=== PATIENT | male | born 1955 | race Caucasian/White ===

== ENCOUNTER → 2018-07-01 | Outpatient (CLI) | payer OTHER ==
[~2018-07-01] MED LIST: CHOL1TAB42 PO; CLB/200 PO
[2018-07-01 17:31] LABS: ALKALINE PHOSPHATASE 59 U/L (45-117); ALT/SGPT 30 U/L (12-78); AST/SGOT 26 U/L (15-37); BLOOD UREA NITROGEN 22 mg/dl (7-18); CALCIUM 8.7 mg/dl (8.5-10.1); CARBON DIOXIDE 28 mmol/L (21-32); CHOLESTEROL 173 mg/dl (0-200); CREATININE 0.99 mg/dl (0.60-1.40); GLUCOSE 90 mg/dl (70-99); LDL CHOLESTEROL CALCULATED 101 mg/dl; POTASSIUM 4.1 mmol/L (3.5-5.1); SODIUM 138 mmol/L (136-145); TOTAL PROTEIN 7.6 gm/dl (6.4-8.2)
== END | disposition home or self-care (01) ==
LOC: C.LABPVFM 12:00
PROVIDERS: ATTEND Family Medicine
DX: Z13.220 Encounter for screening for lipoid disorders (principal); Z13.1 Encounter for screening for diabetes mellitus

== ENCOUNTER 2024-08-10 05:55 | Observation (INO) ==
--- NOTE | 2024-08-01 10:58 | Anesthesiology Consultation ---
Date of Service August 01, 2024 Assessment & Plan Chart Review Chart Review: Acceptable Risk for Surgery and Patient NOT seen in Pre Admission Testing Consults Requested none History Surgery Operation Date: 08/10/24 12:00 Proposed Procedures p Robotic Assisted Laparoscopic Radical Retropubic Prostatectomy, Possible Open, Possible Pelvin Lymph Node Biopsy - Johan Major MD Height/Weight Height: 6 ft 1 in Weight: 92.986 kg Allergies Allergy/AdvReac Type Severity Reaction Status Date / Time penicillin V Allergy Unknown Unknown Verified 07/31/24 10:13 Medications Home Medications Medication Instructions Recorded Confirmed Last Taken cholecalciferol (vitamin D3) 125 125 mcg PO QAM 12/05/21 07/31/24 12/08/21 mcg (5,000 unit) tablet (Vitamin D3) multivitamin 1 tab PO QAM 12/27/23 07/31/24 Unknown celecoxib 200 mg capsule 200 mg PO QAM #90 caps 04/25/24 07/31/24 Unknown sulfamethoxazole 800 1 tab PO BID #20 tabs 07/27/24 07/31/24 Unknown mg-trimethoprim 160 mg tablet (Bactrim DS) hydrochlorothiazide 12.5 mg tablet 12.5 mg PO QAM 07/31/24 07/31/24 Unknown metoprolol succinate 25 mg 12.5 mg PO QAM 07/31/24 07/31/24 Unknown tablet,extended release 24 hr paroxetine HCl 10 mg tablet 10 mg PO QAM arthritis pain 07/31/24 07/31/24 Unknown tadalafil 5 mg tablet 5 mg PO DAILY PRN Erectile 07/31/24 07/31/24 Unknown Dysfunction tamsulosin 0.4 mg capsule 0.8 mg PO QAM 07/31/24 07/31/24 Unknown Past Medical History Medical History (Updated 07/31/24 @ 10:31 by Portia Luis) BPH (benign prostatic hyperplasia) RBBB History of bradycardia f/u [facility] Aneurysm of ascending aorta monitoring; f/u [facility] Ventricular ectopy f/u [facility] Hx of colonic polyps Hypertension Mobitz type 1 second degree atrioventricular block f/u [facility] Prostate cancer dx 05/2024 Rotator cuff tear, left no sx, "it got better" Arthritis paroxetine for this per pt Diverticulosis of colon Internal hemorrhoids Spermatocele pt unsure? Testicular atrophy pt unsure? Past Family History Family History Brother Cancer Prostate cancer Stroke Father Cancer Myocardial infarction Denies family history of Ovarian cancer Diabetes Breast cancer Colorectal cancer Hypertension Past Surgical History Surgical History History of tooth extraction History of tonsillectomy H/O colonoscopy 2014 Social History Smoking Status: Never smoker Do You Dip or Chew Tobacco: No Hx Alcohol Use: Yes Alcohol type: beer alcohol intake frequency: other Alcohol Intake Frequency Comment: 1-2x per week Hx Substance Use: Yes substance use type: marijuana Substance Use Type Other:: marijuana once per week Last Used Substance Other:: daily use Testing Laboratory Results Laboratory Tests 07/25/24 08:55 WBC 4.89 Hgb 12.9 L Hct 38.1 L Plt Count 218 Sodium 139 Potassium 3.9 Chloride 106 Carbon Dioxide 27 BUN 22 Creatinine 0.92 Glucose 114 H Electrocardiogram Date: 12/27/23 Findings: + NSR @ and + RBBB mobitz type I AVB Echocardiogram Date: 01/26/24 EF: 40 LV Function: dysfunctional (global hypokenesis) Valvular Disease: + AI (mild) and + MR (moderate) mildly dilated aortic root
[~2024-08-10 05:55] MED LIST changes: +ALLERGY Noted to ORDERED Medication SCH; -CHOL1TAB42 PO; -CLB/200 PO
[2024-08-10] MEDS ORDERED: MIDAZOLAM HCL 1 MG/ML 2ML VIAL ONE (06:56)
[2024-08-10] MEDS ORDERED: fentaNYL citrate PF 100 MCG/2 ML VIAL ONE ×4 (06:56→12:40)
[2024-08-10] MEDS ORDERED: LIDOCAINE 2% 2 ML VIAL/AMP(20MG/ML) INFIL ONE (07:00)
[2024-08-10] MEDS ORDERED: DEXAMETHASONE SOD INJ 4 MG/ML VIAL ONE (07:00)
[2024-08-10] MEDS ORDERED: PROPOFOL IV EMULSION 10 MG/ML 20 ML VIAL IV ONE (07:00)
[2024-08-10] MEDS ORDERED: ONDANSETRON INJ 2 MG/ML 2 ML VIAL ONE ×2 (07:00→09:51)
[2024-08-10] MEDS ORDERED: ROCURONIUM BROMIDE 10 MG/ML 5 ML VIAL IV ONE ×3 (07:00→10:03)
[2024-08-10] MEDS ORDERED: ACETAMINOPHEN 1000 MG/100 ML IV IV ONE (07:04)
[2024-08-10] MEDS ORDERED: ePHEDrine sulfate 50 MG/ML AMP IV PRN (07:09)
[2024-08-10] MEDS ORDERED: ONDANSETRON INJ 2 MG/ML 2 ML VIAL IV PRN (07:09)
[2024-08-10] MEDS: LR 15ML/HR IV SCH (07:09)
[2024-08-10] MEDS ORDERED: ATROPINE SULFATE 0.1 MG/ML 10ML SYR IV PRN (07:09)
[2024-08-10] MEDS ORDERED: HYDROmorphone INJ 1 MG/ML SYRINGE IV PRN (07:09)
[2024-08-10] MEDS: HEPARIN SOD 5,000 UNIT/0.5 ML VIAL SQ SCH ×2 (07:10→20:15)
[2024-08-10] MEDS: LACTATED RINGER'S 1,000 ML IV SCH (07:10)
--- NOTE | 2024-08-10 07:12 | History & Physical Report ---
Date of Service August 10, 2024 Assessment & Plan (1) Prostate cancer: Plan: We reviewed the plan for robot-assisted radical prostatectomy and possible bilateral pelvic lymph node dissection. We reviewed risks and benefits of surgery. He expressed understanding would like to proceed History of Present Illness Primary Care Provider: Timmy Mike DO This is a 68-year-old male followed by urology for prostate cancer. He presents to the OR today for robot-assisted radical prostatectomy. He has been on culture specific antibiotics leading up to surgery. He denies any UTI symptoms. He has been performing CIC 2-3 times daily. Allergies Allergy/AdvReac Type Severity Reaction Status Date / Time penicillin V Allergy Unknown Unknown Verified 08/10/24 06:25 Home Medications Medication Instructions Recorded Confirmed Type cholecalciferol (vitamin D3) 125 125 mcg PO QAM 12/05/21 08/10/24 History mcg (5,000 unit) tablet (Vitamin D3) multivitamin 1 tab PO QAM 12/27/23 08/10/24 History celecoxib 200 mg capsule 200 mg PO QAM #90 caps 04/25/24 08/10/24 Rx hydrochlorothiazide 12.5 mg tablet 12.5 mg PO QAM 07/31/24 08/10/24 History metoprolol succinate 25 mg 12.5 mg PO QAM 07/31/24 08/10/24 History tablet,extended release 24 hr paroxetine HCl 10 mg tablet 10 mg PO QAM arthritis pain 07/31/24 08/10/24 History tadalafil 5 mg tablet 5 mg PO DAILY PRN Erectile 07/31/24 08/10/24 History Dysfunction tamsulosin 0.4 mg capsule 0.8 mg PO QAM 07/31/24 08/10/24 History sulfamethoxazole 800 1 tab PO BID #14 tabs 08/04/24 08/10/24 Rx mg-trimethoprim 160 mg tablet (Bactrim DS) ciprofloxacin HCl 500 mg tablet 500 mg PO BID UTI #8 tabs 08/07/24 08/10/24 Rx Past Med/Surg History Problem List Prostate cancer Incomplete emptying of bladder Elevated PSA BPH (benign prostatic hyperplasia) Mobitz type 1 second degree AV block Fatigue Uses marijuana Hyperglycemia History of colon polyps Hypertension Bradycardia Acute dentin caries Trismus TMJ capsulitis Aneurysm of ascending aorta (Acute) Arthritis (Acute) Spinal stenosis (Acute) Vitamin D deficiency Ventricular ectopy Near syncope RBBB follows with Dr. Manzanares Medical History BPH (benign prostatic hyperplasia) RBBB History of bradycardia f/u [facility] Aneurysm of ascending aorta monitoring; f/[facility] Ventricular ectopy f/u [facility] Hx of colonic polyps Hypertension Mobitz type 1 second degree atrioventricular block f/u [facility] Prostate cancer dx 05/2024 Rotator cuff tear, left no sx, "it got better" Arthritis paroxetine for this per pt Diverticulosis of colon Internal hemorrhoids Spermatocele pt unsure? Testicular atrophy pt unsure? Surgical History History of tooth extraction History of tonsillectomy H/O colonoscopy 2014 Family History Brother Cancer Prostate cancer Stroke Father Cancer Myocardial infarction Denies family history of Ovarian cancer Diabetes Breast cancer Colorectal cancer Hypertension Social History Smoking Status: Never smoker Second Hand Exposure: Yes (hx as child); Do You Dip or Chew Tobacco: No; Tobacco Cessation Education Requested by Patient: No Hx Alcohol Use: Yes Alcohol type: beer Hx Substance Use: Yes Non-Prescribed Medications: Marijuana Last Used Substance Other:: daily use Substance Use Type Other:: marijuana once per week Preferred Language: Congolese Communication Ability: Effective Dent Remover Required: No Beliefs That Will Affect Care: None marital status: Current Living Situation: Spouse current occupational status: employed current occupation: self employed How many Children do You have: 1 Other Information That Helps Us Care for You: No Feels Safe at Home: Yes Safety Concerns: Feels Safe At This Time Childhood Exposure to Second-Hand Smoke: Yes Diet: regular caffeine: Yes Dental Care, Regularly: Yes Physical Activity Frequency: Daily Seatbelt Use: always Sunscreen Use: No Assistive Devices: Glasses Assistive Devices Comment: reading glasses prn Review of Systems 12 point review of systems negative except for otherwise indicated. Physical Exam Constitutional: well developed and well nourished; no acute distress Eyes: + anicteric sclerae; pupils not irregula r Respiratory: normal respiratory effort; no respiratory distress, does not use accessory muscles and no cough Cardiovascular: well perfused Gastrointestinal (Abdomen): Inspection/Auscultation: abdomen normal to inspection; abdomen not distended Musculoskeletal: Extremities: extremities normal to inspection Skin: normal turgor; no rashes and no lesions Neurologic: moves all extremities and awake Psychiatric: Orientation: alert and oriented x 3 Results & Data Vital Signs (Past 12 Hours) Vital Signs Temp Pulse Resp BP Pulse Ox O2 Del Method 08/10/24 06:30 37 C 56 L 20 126/74 97 Room Air
[2024-08-10] MEDS ORDERED: Nursing to Pharmacy Communication SCH (07:15)
[2024-08-10] MEDS: ceFAZolin 2000MG 2,000 MG/15 ML SYR IV SCH ×2 (07:26→15:27)
[2024-08-10] MEDS ORDERED: GLYCOPYRROLATE 0.2 MG/ML VIAL ONE (08:06)
[2024-08-10] MEDS ORDERED: METOPROLOL TARTRATE 1 MG/ML VIAL IV ONE (09:13)
[2024-08-10] MEDS ORDERED: KETOROLAC 30 MG/ML VIAL ONE (09:17)
[2024-08-10] MEDS ORDERED: SUGAMMADEX SODIUM 200 MG/2 ML VIAL IV ONE (09:18)
[2024-08-10] MEDS ORDERED: HYDROmorphone INJ 2 MG/ML SYR/VIAL ONE (09:49)
[2024-08-10] MEDS: SURGICEL ABSORB HEMOSTAT 2IN X 14IN TOP ONE (10:45)
[2024-08-10] MEDS: BUPIVACAINE 0.5 % 5 MG/1 ML MPF 30ML VIAL ONE (11:06)
--- NOTE | 2024-08-10 11:31 | Operative Report ---
PG Post Operative Report Pre & Post Diagnosis Operation Date: 08/10/24 07:30 Pre-Op Diagnosis: Prostate cancer Post-Op Diagnosis: Prostate cancer I identified the patient and participated in the time-out.: Yes Procedure Operation Date: 08/10/24 07:30 Actual Procedures p Robotic Assisted Laparoscopic Radical Retropubic Prostatectomy, Pelvic Lymph Node Dissection(Not Applicable) - Johan Major MD Surgeon Johan Major MD Foil Cutter ROZINA Little Estimated Blood Loss 50 Findings Consistent with Post-Op Diagnosis Specimens 1) periprostatic fat 2) right pelvic lymph nodes 3) left pelvic lymph nodes 4) prostate, vas deferens, seminal vesicles Drains Villalpando catheter per urethra Anesthesia Type General Complications none Disposition Accompanied Patient To Recovery: Yes Disposition: Recovery Room Indications This is a 68-year-old male followed by urology for prostate cancer. He presents to the OR today for robot-assisted radical prostatectomy. Description of Procedure The patient was identified in the preoperative holding area and informed consent was confirmed. He was then brought to the operating room where general anesthesia was initiated. He was placed supine on the operating room table with all pressure points appropriately padded. His abdomen and genitalia were prepped and draped in the usual sterile fashion and a timeout was performed. A 2 cm incision was made above the umbilicus and then a Veress needle was used to obtain access to the abdomen. Proper position was confirmed with the drop test and low initial insufflation pressure. The abdomen was insufflated with CO2 to a pressure of 15 mmHg. An 8 mm robotic port was placed in the incision and the robotic camera was inserted. The abdominal cavity was surveyed, demonstrating no injury to intra-abdominal contents. He had minimal pelvic adhesions. The remaining robotic ports were placed under direct visualization, with 2 robotic ports on the left side and 1 robotic port on the right. A 12 mm assistant grocery store manager port was placed on the right side as well, and a 5 mm assistant grocery store manager port was placed in the right upper quadrant. The robot was then docked. Using electrocautery, the bladder was then dropped from the anterior wall of the abdomen, exposing the space of Retzius. This dissection was carried down to expose the pelvic brim and subsequently the anterior surface of the prostate and the endopelvic fascia. The fat overlying the anterior of the prostate was removed and sent for pathologic analysis, labeled as 'periprostatic fat'. The endopelvic fascia was then divided on each side to expose the lateral aspects of the prostate and the lateral aspects of the pedicles. A single 3-0 V-Loc suture was used to ligate the dorsal venous complex to prevent backbleeding in subsequent steps. The fourth arm of the robot was then used to put some gentle traction on the bladder, and the bladder neck was identified. Using electrocautery, the anterior bladder neck was dissected to expose the Villalpando catheter, whose tip was removed from the bladder and held anteriorly. The posterior bladder neck dissection was then completed. As I was performing the posterior dissection a cystotomy was made on the right side. The surrounding tissue was freed up and this was repaired using a single 3-0 Vicryl suture. As I was doing the left side, the bladder appeared to be fairly adherent to the prostate and I attempted to stay far from the bladder. In doing so, it appeared that the plane may have been veering toward or potentially into the prostate. I backed up and took a wider path around this area. The final specimen was marked with a silk suture in this position. At this point bilateral vas deferens were exposed and isolated. The vas deferens were cauterized and then divided. Bilateral seminal vesicles were dissected out as well. Denonvilliers fascia was then divided and the posterior prostate dissection was carried up as far as possible toward the urethra. The pedicles were then divided using combination of clips and sharp dissection, trying to use minimal electrocautery. On the right side, a partial nerve sparing approach was used. On the left side, a partial nerve sparing approach was used. Attention was turned anteriorly and the dorsal venous complex was divided using sharp dissection and electrocautery. The urethra was isolated and then divided sharply. At this point, the prostate was free and was placed in a specimen bag. Bilateral pelvic lymph node dissection was then performed, and the renu tissue was sent for pathologic analysis. The pelvis was inspected and meticulous hemostasis was ensured. Double-armed V- Loc suture was then used to re-anastomose the bladder neck with the urethra. Once this was complete, the anastomosis was tested by instilling 120 mL of normal saline into the bladder. Satisfied that the anastomosis was watertight, the catheter balloon was inflated with 10 mL of normal saline. Surgicel was then applied to the lateral aspects of the pelvis for hemostasis. The robot was then undocked. The supraumbilical incision was extended and the prostate was extracted. 0 Vicryl suture was then used to close the fascia at this incision. All skin incisions were closed with 4-0 Monocryl suture and then a layer of Dermabond was applied. The patient was then awakened from anesthesia and was brought to the PACU in stable condition. ROZINA Little acted as the bedside assistant grocery store manager for the duration of the case. She assisted with gaining access, providing retraction and suction. Passing in sutures and applying clips as needed. She also helped with specimen extraction and closing. I attest to the content of the Intraoperative Record and any orders documented therein. Any exceptions are noted below.
[2024-08-10] MEDS: fentaNYL citrate PF 100 MCG/2 ML VIAL IV PRN (11:32)
[2024-08-10] MEDS ORDERED: HYDROmorphone INJ 0.5 MG/0.5 ML SYR IV PRN ×2 (13:05)
[2024-08-10] MEDS ORDERED: oxyCODONE HCL IR 5 MG TAB (IMMEDIATE RELEASE) PO PRN ×2 (13:05)
--- NOTE | 2024-08-10 13:10 | Anesthesiology Progress Note ---
Date of Service August 10, 2024 Anesthesia Post Procedure Vital Signs Vital Signs: Temp Pulse Pulse Resp BP BP Pulse Ox 08/10/24 12:40 37.1 C 79 16 121/70 97 08/10/24 12:30 82 15 114/69 97 08/10/24 12:20 67 12 103/71 94 08/10/24 12:10 69 12 109/65 93 08/10/24 12:00 71 13 120/63 92 08/10/24 11:50 74 14 106/60 95 08/10/24 11:40 83 12 125/81 95 08/10/24 11:30 82 22 149/89 H 99 08/10/24 11:23 36.3 C L 85 11 L 141/85 H 97 08/10/24 06:30 37 C 56 L 20 126/74 97 O2 Del Method O2 Flow Rate 08/10/24 12:40 Nasal Cannula 2 08/10/24 12:30 Nasal Cannula 3 08/10/24 12:20 Nasal Cannula 3 08/10/24 12:10 Nasal Cannula 4 08/10/24 12:00 Nasal Cannula 4 08/10/24 11:50 Oxymask 10 08/10/24 11:40 Oxymask 10 08/10/24 11:30 Oxymask 10 08/10/24 11:23 Oxymask 10 08/10/24 06:30 Room Air Transfer of Care Handoff Completed per policy Notes Mental Status: alert / awake / arousable and participated in evaluation Patient Amnestic to Procedure: Yes Nausea / Vomiting: adequately controlled Pain: adequately controlled Airway Patency, RR, SpO2: stable & adequate BP & HR: stable & adequate Hydration State: stable & adequate Anesthetic Complications: no major complications apparent and Pt Satisfied with anesthetic care
[2024-08-10] MEDS: SODIUM CHLORIDE 0.9% 1,000 ML IV SCH (14:09)
[2024-08-10] MEDS: ACETAMINOPHEN 325 MG TAB PO SCH (14:11)
[2024-08-10] MEDS: DOCUSATE SODIUM 100 MG CAP PO SCH (20:16)
[2024-08-11 00:27] VITALS: O2SAT 96
[2024-08-11] MEDS: ONDANSETRON INJ 2 MG/ML 2 ML VIAL IV PRN (00:34)
[2024-08-11 03:58] VITALS: BP 122/64; PULSE 67; RESP 18; TEMP 98.2
--- NOTE | 2024-08-11 07:30 | Urology Progress Note ---
Date of Service August 11, 2024 Assessment & Plan (1) Prostate cancer: Plan: Recovering appropriately s/p radical prostatectomy on 08/10/2027. He is ambulating, tolerating a diet and pain is well-controlled. We will plan on discharge home today. Admission and Anticipated Discharge Date Admission Date: August 10, 2024 Subjective Feeling better this morning, had some distention overnight. Denies any nausea or vomiting. Tolerating a diet. Has not yet passed flatus or had bowel movements. He has been ambulating a little bit. Not having too much pain. Physical Exam Physical Exam: Well-appearing, NAD Abdomen soft, appropriately tender to palpation, incisions well-approximated with Dermabond Villalpando catheter in place draining clear yellow urine. Results & Data Vital Signs (Past 12 Hours) Vital Signs Temp Pulse Resp BP Pulse Ox O2 Del Method 08/11/24 03:57 36.8 C 67 18 122/64 96 Room Air 08/11/24 00:26 36.9 C 60 16 107/60 96 Room Air 08/10/24 20:51 37.1 C 64 16 106/66 95 Room Air PG Care Time/CCT Total # of Minutes Spent Total Time Spent with Patient: Total time spent is greater than 50% in coordination of care (as documented) at patient's floor/unit and/or counseling patient: Coding Level of Care Code None Diagnoses Prostate cancer C61
--- NOTE | 2024-08-11 07:34 | Discharge Summary ---
Date of Service August 11, 2024 Admission HPI Per Admitting Provider This is a 68-year-old male followed by urology for prostate cancer. He underwent radical prostatectomy on 08/10/2024 and was admitted postoperatively in good condition. Admission Exam Per Admitting Provider Constitutional well developed and well nourished; no acute distress Eyes + anicteric sclerae; pupils not irregular Respiratory normal respiratory effort; no respiratory distress, does not use accessory muscles and no cough Cardiovascular well perfused Gastrointestinal (Abdomen) Inspection/Auscultation: abdomen normal to inspection; abdomen not distended Musculoskeletal Extremities: extremities normal to inspection Skin normal turgor; no rashes and no lesions Neurologic moves all extremities and awake Psychiatric Orientation: alert and oriented x 3 Principal Diagnosis Prostate cancer Discharge Exam Well-appearing, NAD Abdomen soft, appropriately tender to palpation, incisions well-approximated with Dermabond Bledsoe catheter in place draining clear yellow urine. Discharge Data Allergies Allergy/AdvReac Type Severity Reaction Status Date / Time penicillin V Allergy Unknown Unknown Verified 08/10/24 06:25 Procedures Performed Operation Date: 08/10/24 07:30 Actual Procedures p Robotic Assisted Laparoscopic Radical Retropubic Prostatectomy, Pelvic Lymph Node Dissection(Not Applicable) - Johan Major MD Hospital Course (1) Prostate cancer: He underwent robot-assisted radical prostatectomy on 08/10/2024. By 08/11/2024, he was tolerating a diet, ambulating and pain was well-controlled. He was discharged home in good condition. Total Time Total Time Spent Total Time Spent (In Minutes): 15 Discharge Plan Discharge Items Patient Disposition: Home - Self-Care Reason For Visit: Prostate Cancer Discharge Diagnosis: Prostate cancer Activity: Per Instructions section Non-emergency contact: Urologist Call non-emergency contact if: your pain is not controlled, your pain is unusual for you, you have a fever, your temperature is above 101, your wound has increased redness, your wound has increased drainage and your wound pain has increased Follow-up/Referrals: Timmy Mike DO [Primary Care Provider] - Diet: Regular Addtl Attending Provider Instructions: The surgery you had was: Robot-assisted radical prostatectomy with bilateral pelvic lymph node dissection. Please take all medications as prescribed and keep all follow-ups as scheduled. Please call our office at [phone] with any questions, concerns or need to reschedule appointments for any reason. We are happy to assist you Medications: Please take all medications as prescribed. For pain control, you can take tylenol every 6 hours. You can also take ibuprofen every 6 hours. If you have been prescribed a narcotic pain medication, please take this according to the instructions on the label. You have been prescribed a short course of antibiotics (ciprofloxacin). Take this as prescribed and save your last dose of ciprofloxacin to be taken 1 hour prior to your appointment for bledsoe catheter removal. Activity: We recommend having someone with you for the first few days after surgery to help care for you. For the first 2 weeks after surgery, we would like you to get up and walk around your house. However, we recommend limit physical activity that would increase your heart rate. This will allow your body to rest and heal. Take naps if you feel tired. Don't lift anything heavier than 10 pounds, mow the law or ride a bicycle until your follow-up appointment. Please avoid long car rides. Home Care: Unless directed otherwise, drink 6 to 8 glasses of water a day (enough to keep your urine light colored). This will also help keep a healthy flow of urine. We recommend using a stool softener such as colace or miralax for the first two weeks to avoid constipation. Bledsoe Catheter or Suprapubic Catheter care: Keep the catheter well secured with either a leg back or leg strap with large bag. Empty your bag when it's about half full. You may notice some blood in the bag. This is normal after surgery and while the catheter is in place. Use mild soap (such as Dove or Dial) and water to wash the catheter and the head of your penis daily, or more frequently if needed. Return to your normal diet, we encourage good protein intake to promote healing. You may shower as normal. Please avoid tub baths or soaking until catheter removed and incisions well healed. Wearing sweat pants while you have the catheter is recommended, they will be more comfortable. Follow-up We will have you come to the office in approximately 7 days for catheter removal. - Please remember to take your dose of antibiotics 1 hour prior to this appointment. We will go over pathology and schedule additional follow-up at this visit. Call [facility] at [phone] right away if you have any of the following: Chest pain or trouble breathing (call 911 or go to the hospital) Fever of 101F or higher, uncontrolled vomiting Heavy bleeding, clots, or bright red blood from the catheter Catheter that falls out or stops draining Foul-smelling discharge from your catheter Redness, swelling, warmth, or increased pain at your incision site Drainage, pus, or bleeding from your incision Pending Studies at Discharge: No Stand-Alone Forms: My [facility] DDVTE[employer], Smoking Cessation Medications and DC Order Prescriptions: New ciprofloxacin HCl [Cipro] 500 mg tablet 500 mg PO BID Qty: 10 0RF Continued celecoxib 200 mg capsule 200 mg PO QAM Qty: 90 3RF sulfamethoxazole-trimethoprim [Bactrim DS] 800-160 mg tablet 1 tab PO BID Qty: 14 0RF Patient Comments: started 07/28/24 for 10 days ciprofloxacin HCl 500 mg tablet 500 mg PO BID MDD 1000mg Qty: 8 0RF multivitamin Tablet 1 tab PO QAM cholecalciferol (vitamin D3) [Vitamin D3] 125 mcg (5,000 unit) Tablet 125 mcg PO QAM paroxetine HCl 10 mg tablet 10 mg PO QAM tamsulosin 0.4 mg capsule 0.8 mg PO QAM metoprolol succinate 25 mg tablet extended release 24 hr 12.5 mg PO QAM tadalafil 5 mg tablet 5 mg PO DAILY PRN (Reason: Erectile Dysfunction) Patient Comments: hydrochlorothiazide 12.5 mg tablet 12.5 mg PO QAM Discharge Orders: Discharge Order (Routine); Ordered 08/11/24 Ordered By: Johan Major Admission Data Admit Date/Time: 08/10/24 11:22 Attending Provider: Johan Major Admit Provider: Johan Major Primary Care Provider: Timmy Mike Coding Level of Care Code 43579 IN/OBS DISCH 30 MIN/LESS Diagnoses Prostate cancer C61
[2024-08-11] MEDS: CHOLECALCIFEROL 125 MCG (5,000 UNITS) TAB PO SCH (08:16)
[2024-08-11] MEDS: hydroCHLOROthiazide 25 MG TAB PO SCH (08:16)
[2024-08-11] MEDS: MULTIVITAMIN TAB PO SCH (08:17)
[2024-08-11] MEDS: PARoxetine HCL 10 MG TAB PO SCH (08:18)
[2024-08-11] MEDS: METOPROLOL SUCC 25MG EXT REL TAB PO SCH (08:18)
[2024-08-11 08:20] LABS: Basophils # (auto) 0.02 K/uL (0.00-0.20); Basophils % (auto) 0.2 %; Eosinophils # (auto) 0.01 K/uL (0.00-0.50); Eosinophils % (auto) 0.1 %; Hematocrit (blood only) 33.9 % (42.0-52.0); Hemoglobin 11.4 g/dl (14.0-18.0); Immature Granulocytes # (auto) 0.06 K/uL (0.01-0.20); Immature Granulocytes % (auto) 0.6 %; Lymphocytes # (auto) 1.69 K/uL (1.20-3.40); Lymphocytes % (auto) 16.8 %; Mean Corpuscular Hemoglobin 33.2 pg (25.0-34.0); Mean Corpuscular Hgb Conc 33.6 g/dL (32.0-36.0); Mean Corpuscular Volume 98.8 fL (80.0-100.0); Mean Platelet Volume 9.7 fL (9.4-12.4); Monocytes # (auto) 1.21 K/uL (0.11-0.59); Neutrophils # (auto) 7.07 K/uL (1.40-6.50); Neutrophils % (auto) 70.3 %; Platelet Count 226 K/uL (130-400); RDW Coefficient of Variation 12.9 % (11.5-14.5); Red Blood Count 3.43 M/uL (4.70-6.10); White Blood Count 10.06 K/ul (4.8-10.8)
[2024-08-11 09:26] LABS: BUN Creatinine Ratio 15.1 (10-20); Calcium 8.4 mg/dl (8.6-10.3); Creatinine Clr Calc Pharmacy 77.5 ml/min; Est GFR (African American) 83.2 ml/min; Est GFR (Non-African American) 71.8 ml/min
[2024-08-11] MEDS: IBUPROFEN 200 MG TAB PO PRN (10:38)
== END 2024-08-11 11:38 | disposition home or self-care (01) | DRG 708 ==
LOC: ASU 05:55 → INTOOBSV 11:22 → 3W 11:22